=== PATIENT | male | born 1960 | race Caucasian/White ===

== ENCOUNTER 2024-02-10 10:22 | Outpatient (CLI) | payer MEDICARE ==
[2024-02-10 11:36] LABS: Hemoglobin 13.8 g/dL (14.0-18.0)
[2024-02-10 11:49] LABS: Anion Gap 13 mmol/L (10-20); BUN (Urea Nitrogen) 15 mg/dL (8.4-25.7); Calc. Creatinine Clearance 0 mL/min (70-130); Calcium 9.4 mg/dL (7.8-10.44); Carbon Dioxide 22 mmol/L (23-31); Chloride 103 mmol/L (98-107); Estimated GFR 87; Glucose 85 mg/dL (80-115); Potassium 3.7 mmol/L (3.5-5.1); Sodium 134 mmol/L (136-145)
== END 2024-02-10 10:23 | disposition home or self-care (01) ==
LOC: LABBT 10:22
PROVIDERS: ATTEND Specialist
DX: Z01.818 Encounter for other preprocedural examination (principal); J34.2 Deviated nasal septum; J34.3 Hypertrophy of nasal turbinates; J01.01 Acute recurrent maxillary sinusitis; J01.11 Acute recurrent frontal sinusitis; J01.21 Acute recurrent ethmoidal sinusitis; J01.31 Acute recurrent sphenoidal sinusitis
CPT/HCPCS: 80048; 85014; 85018; 93005; 93010

== ENCOUNTER 2024-02-19 09:15 | Day surgery (SDC) | payer MEDICARE ==
[2024-02-19] MEDS ORDERED: Lidocaine 1% (PF) 30 ML VIAL ONE (11:32)
[2024-02-19] MEDS ORDERED: EPINEPHrine 1 MG/ML VIAL ONE (11:32)
[2024-02-19] MEDS ORDERED: Bacitracin Zinc Ointment 30 gm TUBE ONE (11:32)
[2024-02-19] MEDS ORDERED: Lidocaine 1% PF 5 ML VIAL ONE (12:16)
[2024-02-19] MEDS ORDERED: PROPOFOL 20 ML ONE (12:16)
[2024-02-19] MEDS ORDERED: fentaNYL PF 100 MCG/2 ML SYRINGE ONE ×2 (12:16→13:46)
[2024-02-19] MEDS ORDERED: Ondansetron PF 4 MG/2 ML Vial ONE (12:16)
[2024-02-19] MEDS ORDERED: Dexamethasone 20 MG/5 ML VIAL ONE (12:16)
[2024-02-19] MEDS ORDERED: Oxymetazoline HCl 0.05% (30 ML BOT) ONE ×2 (12:31→14:24)
[2024-02-19] MEDS ORDERED: Midazolam HCl 2 mg/2 ml Vial ONE (12:39)
[2024-02-19] MEDS ORDERED: hydrALAZINE 20 MG/ML VIAL ONE (14:40)
[2024-02-19] MEDS ORDERED: Acetaminophen 500 MG TAB ONE (15:56)
== END 2024-02-19 16:45 | disposition home or self-care (01) ==
LOC: SDC 09:15
PROVIDERS: ATTEND Specialist
PROC: 09TV8ZZ Resection of Left Ethmoid Sinus, Via Natural or Artificial Opening Endoscopic (ICD-10-PCS; principal; 2024-02-19)
PROC: 09TW8ZZ Resection of Right Sphenoid Sinus, Via Natural or Artificial Opening Endoscopic (ICD-10-PCS; 2024-02-19)
PROC: 09TX8ZZ Resection of Left Sphenoid Sinus, Via Natural or Artificial Opening Endoscopic (ICD-10-PCS; 2024-02-19)
PROC: 09TQ8ZZ Resection of Right Maxillary Sinus, Via Natural or Artificial Opening Endoscopic (ICD-10-PCS; 2024-02-19)
PROC: 09TR8ZZ Resection of Left Maxillary Sinus, Via Natural or Artificial Opening Endoscopic (ICD-10-PCS; 2024-02-19)
PROC: 09TS8ZZ Resection of Right Frontal Sinus, Via Natural or Artificial Opening Endoscopic (ICD-10-PCS; 2024-02-19)
PROC: 09TT8ZZ Resection of Left Frontal Sinus, Via Natural or Artificial Opening Endoscopic (ICD-10-PCS; 2024-02-19)
PROC: 09TU8ZZ Resection of Right Ethmoid Sinus, Via Natural or Artificial Opening Endoscopic (ICD-10-PCS; 2024-02-19)
PROC: 09TL8ZZ Resection of Nasal Turbinate, Via Natural or Artificial Opening Endoscopic (ICD-10-PCS; 2024-02-19)
DX: J34.2 Deviated nasal septum (principal); J01.41 Acute recurrent pansinusitis; J34.1 Cyst and mucocele of nose and nasal sinus; J34.3 Hypertrophy of nasal turbinates; I10 Essential (primary) hypertension; E78.00 Pure hypercholesterolemia, unspecified; J30.1 Allergic rhinitis due to pollen; J30.81 Allergic rhinitis due to animal (cat) (dog) hair and dander; J30.89 Other allergic rhinitis; Z79.899 Other long term (current) drug therapy
CPT/HCPCS: 30140; 31259; 31267; 31276; 61782; 93005; J0171; J0360; J1100; J2001; J2250; J2405; J2704; 93010